=== PATIENT | female | born 1955 | race African-American/Black ===

== ENCOUNTER 2019-11-22 11:19 | Emergency (ER) | payer MEDICAID ==
[~2019-11-22] VITALS: Ht 157.5 cm; Wt 104.0 kg
[2019-11-22] MEDS ORDERED: TRAMADOL 50MG TABLET PO ONE (11:45)
[2019-11-22 12:31] VITALS: BP 170/73
[2019-11-22] MEDS ORDERED: IBUPROFEN 800MG TABLET PO ONE (13:45)
== END 2019-11-22 15:01 | disposition home or self-care (01) ==
LOC: ER 11:54
DX: M25.562 Pain in left knee (principal); I10 Essential (primary) hypertension
CPT/HCPCS: 73552; 73562; 99284; L1830